=== PATIENT | female | born 1965 | race Caucasian/White ===

== ENCOUNTER → 2018-02-04 | Outpatient (CLI) | payer OTHER ==
[~2018-02-04] MED LIST: CLR10; MULT-506
--- NOTE | 2018-02-04 09:32 | DIAGNOSTIC IMAGING REPORT ---
SINUS CT WITHOUT CONTRAST CLINICAL HISTORY: Headaches. Acute frontal sinusitis. COMPARISON STUDY: None. Technique: Helical axial images of the sinuses were obtained without IV contrast. Coronal reformats were viewed. A dose lowering technique was utilized adhering to the principles of ALARA. CT DOSE: 576.66 mGy.cm FINDINGS: Visualized portions of the intracranial contents are unremarkable on this unenhanced examination. Mastoid air cells are clear. Ossicles are intact. There is no fluid within the middle ears. Orbits are unremarkable on this unenhanced examination. No mass or bony destruction is identified within the nasal cavity or the sinuses. There is moderate mucosal thickening within the left frontal sinus with an air-fluid level. There is also moderate mucosal thickening of the ethmoid and sphenoid sinuses. There are secretions within the left sphenoid sinus. There is minimal mucosal thickening of the maxillary sinuses. The ostiomeatal complexes are patent. IMPRESSION: 1. Moderate frontal, ethmoid and sinus mucosal thickening with the left frontal sinus air-fluid level and secretions within the left sphenoid sinus which suggest acute sinusitis. 2. Patent ostiomeatal complexes. Electronically signed by: Sylvester Esquivel M.D. 02/04/2018 9:31 AM Dictated Date/Time: 02/04/2018 9:26 AM
== END | disposition home or self-care (01) ==
LOC: C.CTS 09:06
PROVIDERS: ATTEND Physician Assistant
DX: R51 Headache (principal); R42 Dizziness and giddiness; J01.10 Acute frontal sinusitis, unspecified